=== PATIENT | female | born 1950 | race Caucasian/White ===

== ENCOUNTER 2017-07-28 12:35 | Emergency (ER) | payer MEDICARE ==
[~2017-07-28] VITALS: Wt 68.0 kg
[~2017-07-28 12:35] MED LIST: ALBUTEROL0.09 MG/A2 INH; CARAFATE1 G1 PO; CIPRO500 MG PO; FE-TABS325 MG PO; FLAGYL500 MG PO; FLEXERIL10 MG PO; IMODIUM2 MG PO; IRON; LISINOPRIL10 MG PO; LOPRESSOR25 MG PO; MOTRIN800 MG PO; PREDNICOT20 MG PO; PROTONIX40 MG PO; Percocet 325 MG1 TAB PO; VIBRAMYCIN100 MG PO; VICO75300 PO; VICODIN 5/500 505 MG PO; VICODIN 500 MG-1 TAB PO; ZOVIRAX400 MG PO; Zofran4 MG PO
== END 2017-07-28 14:54 | disposition left against medical advice (07) ==
LOC: ED 12:35
DX: M25.562 Pain in left knee (principal); Z53.21 Procedure and treatment not carried out due to patient leaving prior to being seen by health care provider

== ENCOUNTER → 2017-12-13 | Outpatient (CLI) | payer MEDICARE | END | disposition home or self-care (01) | LOC: CT 12:43 | DX: S09.90XD Unspecified injury of head, subsequent encounter (principal); M47.896 Other spondylosis, lumbar region; M12.88 Other specific arthropathies, not elsewhere classified, other specified site; G44.311 Acute post-traumatic headache, intractable; R41.3 Other amnesia; S13.4XXA Sprain of ligaments of cervical spine, initial encounter; M45.5 Ankylosing spondylitis of thoracolumbar region; M47.892 Other spondylosis, cervical region; J32.3 Chronic sphenoidal sinusitis; J32.2 Chronic ethmoidal sinusitis; Z91.81 History of falling; X58.XXXD Exposure to other specified factors, subsequent encounter ==

== ENCOUNTER → 2017-12-20 | Outpatient (CLI) | payer MEDICARE | END | disposition home or self-care (01) | LOC: LAB 10:16 | PROVIDERS: Nurse Practitioner Primary Care | DX: I10 Essential (primary) hypertension (principal); D50.9 Iron deficiency anemia, unspecified ==

== ENCOUNTER → 2018-06-23 | Outpatient (CLI) | payer MEDICARE ==
[~2018-06-23] MED LIST changes: +HYDROCHLOROTH12.5 M3 PO; +LEXAPRO10 MG PO; +VITAMIN D5000 UNI1 PO
== END | disposition home or self-care (01) ==
LOC: CT 13:00
DX: S09.90XA Unspecified injury of head, initial encounter (principal); R42 Dizziness and giddiness; M54.2 Cervicalgia; X58.XXXA Exposure to other specified factors, initial encounter; Y93.89 Activity, other specified; Y92.89 Other specified places as the place of occurrence of the external cause; Y99.8 Other external cause status

== ENCOUNTER → 2018-08-15 | Outpatient (CLI) | payer MEDICARE ==
[2018-08-15 10:56] LABS: BASO % 0.7 % (0.0-1.0); EOS # 0.2 10*3/uL (0.0-0.4); HEMATOCRIT 39.6 % (37.0-47.0); HEMOGLOBIN 13.6 g/dl (12.0-16.0); LYMPH # 1.3 10*3/uL (1.3-4.4); LYMPH % 23.4 % (27.0-41.0); MEAN CELL VOLUME 90.6 fl (81.0-99.0); MEAN CORPUSCULAR HGB 31.1 pg (27.0-31.0); MEAN CORPUSCULAR HGB CONC 34.3 g/dl (33.0-37.0); MEAN PLATELET VOLUME 9.6 fl (9.6-12.3); MONO # 0.5 10*3/uL (0.1-1.0); NEUT # 3.4 10*3/uL (2.3-7.9); NEUT % 62.5 % (47.0-73.0); PLATELET COUNT AUTOMATED 236 10*3/uL (130-400); RED BLOOD COUNT 4.37 10*6/uL (4.10-5.10); RED CELL DISTRI WIDTH 13.2 % (0-14.5); WHITE BLOOD COUNT 5.4 10*3/uL (4.8-10.8)
== END | disposition home or self-care (01) ==
LOC: LAB 10:17 → MAMMO 11:00
PROVIDERS: Family Medicine
DX: Z12.31 Encounter for screening mammogram for malignant neoplasm of breast (principal); M54.5 Low back pain; K92.1 Melena; Z78.0 Asymptomatic menopausal state; Z90.710 Acquired absence of both cervix and uterus

== ENCOUNTER → 2018-08-25 | Day surgery (SDC) | payer MEDICARE ==
[~2018-08-25] VITALS: Ht 157.4 cm; Wt 68.0 kg
--- NOTE | ~2018-08-25 | PROC NOTE ---
[place], [place] PROCEDURE NOTE NAME: ADEBAYO TONEY [facility] #: [id number] UNIT #: [id number] ROOM: DOCTOR: CHINO MICHAEL MD BIRTHDATE: [birth year] DOS: 08/25/2018 PREOPERATIVE DIAGNOSIS: Lower GI bleed. POSTOPERATIVE DIAGNOSIS: Normal sigmoid colon. PROCEDURE: Flexible sigmoidoscopy. ENDOSCOPIST: Chino Michael MD BANK MANAGER: BONI. ANESTHESIA: MAC. INDICATIONS: This is a 67-year-old lady here for a workup for a lower GI bleed. Procedure and its complications were explained to the patient in detail preoperatively. Complications that were discussed included but were not limited to, bleeding, colon perforation, and missed lesion. She agreed to proceed. DESCRIPTION OF PROCEDURE: After identifying the patient, the patient was brought to the endoscopy suite and placed in the left lateral position. After IV sedation was administered, a time-out procedure was called. A digital rectal exam was performed, which was within normal limits. There was no blood on the examining finger. An adult colonoscope was now introduced into the anal canal and advanced sequentially into the rectum and sigmoid colon up to the region of 20 cm from the anal verge. Despite multiple attempts, the scope could not be negotiated any further from this point. Until this point, there were no obvious lesions that could explain the bleeding and the lower GI bleed could be found. There were minor internal hemorrhoids that were visualized on the way out upon retroflexion of the scope, but no other lesions that could be seen. There was no active bleeding from the region of the hemorrhoids. The scope was withdrawn and the patient was brought back to the recovery in stable fashion. She will be sent down to Radiology to get a barium enema for further workup. These findings were discussed with the patient's family in the recovery room. Chino Michael MD CM:PROCNOTE:PROCEDURE NOTE [id number] CHINO MICHAEL MD
[2018-08-25 06:44] VITALS: BP 142/58
[2018-08-25 07:58] VITALS: BP 89/48
[2018-08-25 08:14] VITALS: BP 92/50
[2018-08-25 08:27] VITALS: BP 110/59
== END | disposition home or self-care (01) ==
LOC: SDC 08-22 12:30
DX: K92.2 Gastrointestinal hemorrhage, unspecified (principal); D50.9 Iron deficiency anemia, unspecified; K64.8 Other hemorrhoids; I10 Essential (primary) hypertension; M19.90 Unspecified osteoarthritis, unspecified site; F32.9 Major depressive disorder, single episode, unspecified; G89.29 Other chronic pain; K21.9 Gastro-esophageal reflux disease without esophagitis; Z90.710 Acquired absence of both cervix and uterus; Z96.652 Presence of left artificial knee joint; Z98.84 Bariatric surgery status; Z98.890 Other specified postprocedural states; Z90.49 Acquired absence of other specified parts of digestive tract; Z79.899 Other long term (current) drug therapy

== ENCOUNTER 2019-04-13 07:07 | Inpatient (IN) | payer MEDICARE ==
[~2019-04-13] VITALS: Ht 152.4 cm; Wt 68.7 kg
[2019-04-13] VITALS (8 sets, daily range): BP systolic 117–155; BP diastolic 54–80
--- NOTE | ~2019-04-13 | EKG ---
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
--- NOTE | ~2019-04-13 | EKG ---
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 : 1950 Requested By: MOOK QUIÑONES Order Number: [id number] Reading MD: Mickey Grace MD Measurements Intervals [place] Rate: 53 P: 44 GA: 147 QRS: 4 QRSD: 82 T: 40 QT: 451 QTc: 424 Interpretive Statements Sinus rhythm Electronically Signed On 04-13-2019 15:53:39 PDT by Mickey Grace MD CM:EKGRPT:ELECTROCARDIOGRAM REPORT [id number] 1553 MOOK GRAHAM DRAFT REPORT MOOK QUIÑONES DO
--- NOTE | ~2019-04-13 | EKG ---
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
[2019-04-13 07:26] LABS: BASO % 0.5 % (0.0-1.0); EOS # 0.1 10*3/uL (0.0-0.4); EOS % 1.4 % (1.0-4.0); HEMATOCRIT 40.9 % (37.0-47.0); HEMOGLOBIN 13.6 g/dl (12.0-16.0); LYMPH # 1.2 10*3/uL (1.3-4.4); LYMPH % 18.5 % (27.0-41.0); MEAN CELL VOLUME 99.3 fl (81.0-99.0); MEAN CORPUSCULAR HGB CONC 33.3 g/dl (33.0-37.0); MEAN PLATELET VOLUME 9.8 fl (9.6-12.3); MONO # 0.6 10*3/uL (0.1-1.0); MONO % 8.8 % (3.0-9.0); NEUT # 4.6 10*3/uL (2.3-7.9); NEUT % 70.3 % (47.0-73.0); PLATELET COUNT AUTOMATED 234 10*3/uL (130-400); RED BLOOD COUNT 4.12 10*6/uL (4.10-5.10); WHITE BLOOD COUNT 6.5 10*3/uL (4.8-10.8)
[2019-04-13 07:39] LABS: ACT PARTIAL THROMBO TIME 25.9 SECONDS (20.0-32.1); INTERNATIONAL NORM RATIO 0.9 (2.0-3.5)
[2019-04-13 07:41] LABS: ALBUMIN 3.5 gm/dl (3.1-4.5); ALKALINE PHOSPHATASE 68 U/L (45-117); CHLORIDE 110 mmol/L (98-107); CREATININE 0.97 mg/dL (0.55-1.02); POTASSIUM 3.6 mmol/L (3.5-5.1); SGOT/AST 17 IU/L (3-35); SGPT/ALT 18 U/L (12-78); SODIUM 141 mmol/L (136-145); TOTAL PROTEIN 6.7 gm/dL (6.4-8.2)
[2019-04-13 07:46] LABS: LIPASE 162 U/L (73-393)
[2019-04-13 07:52] LABS: BUN 26 mg/dl (7-24); TROPONIN I < 0.015 ng/ml (<0.045)
--- NOTE | 2019-04-13 11:00 | NUR ---
THE PATIENT STATES SHE IS FEELING BETTER AT THIS TIME. JG ROSEN RN.
--- NOTE | 2019-04-13 11:20 | NUR ---
PT AMBULATORY TO THE BATHROOM GAIT STEADY DENIES GFEELING DIZZY OR NAUSEATED AT THIS TIME.JG ROSEN RN.
--- NOTE | 2019-04-13 12:38 | NUR ---
A 68, admitted to , under the services of YVES Gustafson DO with a diagnosis of CONCUSSION, UNSTEADY GAIT. Chief complaint is DIZZINESS. Patient arrived via ambulatory from ER. Monitor applied. Initial assessment completed. Vital signs taken and recorded. YVES GUSTAFSON DO notified of admission to the unit. Orders received. See assessment for past medical history, medications and allergies. Patient and/or family oriented to unit. [facility] visitation policy reviewed. Clothing/patient valuable form completed. JEB SANDERS
[2019-04-13] MEDS ORDERED: CYCLOBENZAPRINE5 M3 PO (13:07)
[2019-04-13] MEDS ORDERED: FEROSUL325 MG PO (13:09)
[2019-04-14] VITALS: BP 110/51
[2019-04-14 06:47] LABS: BASO % 0.5 % (0.0-1.0); EOS # 0.1 10*3/uL (0.0-0.4); HEMATOCRIT 38.5 % (37.0-47.0); HEMOGLOBIN 12.7 g/dl (12.0-16.0); LYMPH # 1.2 10*3/uL (1.3-4.4); LYMPH % 29.1 % (27.0-41.0); MEAN CELL VOLUME 99.5 fl (81.0-99.0); MEAN CORPUSCULAR HGB 32.8 pg (27.0-31.0); MEAN PLATELET VOLUME 9.9 fl (9.6-12.3); MONO # 0.4 10*3/uL (0.1-1.0); MONO % 9.1 % (3.0-9.0); NEUT # 2.3 10*3/uL (2.3-7.9); NEUT % 58.8 % (47.0-73.0); PLATELET COUNT AUTOMATED 222 10*3/uL (130-400); RED BLOOD COUNT 3.87 10*6/uL (4.10-5.10); RED CELL DISTRI WIDTH 11.9 % (0-14.5)
--- NOTE | 2019-04-14 07:03 | NUR ---
PHYSICAL THERAPY Nursing screen received. PT orders also received. Thank you. Gauri Morgan,PT
[2019-04-14 07:24] LABS: ALBUMIN 3.2 gm/dl (3.1-4.5); ALKALINE PHOSPHATASE 66 U/L (45-117); BUN 18 mg/dl (7-24); CHLORIDE 112 mmol/L (98-107); CHOLESTEROL 182 mg/dL (<200); CREATININE 0.68 mg/dL (0.55-1.02); FREE T4 1.11 ng/dl (0.76-1.46); HDL CHOLESTEROL 37 mg/dl (40-60); LDL CHOLESTEROL 114 mg/dL (9-159); PHOSPHOROUS 3.1 mg/dL (2.5-4.9); SGOT/AST 15 IU/L (3-35); SGPT/ALT 17 U/L (12-78); SODIUM 142 mmol/L (136-145); TOTAL PROTEIN 6.4 gm/dL (6.4-8.2); TRIGLYCERIDES 154 mg/dl (<150); VLDL CHOLESTEROL 31 mg/dL (6-40)
[2019-04-14 07:28] LABS: THYROID STIM HORMONE (HS) 0.539 uIU/ml (0.358-4.75)
[2019-04-14 07:32] LABS: ACT PARTIAL THROMBO TIME 25.5 SECONDS (20.0-32.1); INTERNATIONAL NORM RATIO 0.9 (2.0-3.5)
[2019-04-14 08:00] VITALS: BP 150/69
[2019-04-14 08:57] LABS: VITAMIN D, 25-HYDROXY 22.2 ng/mL (30-100)
--- NOTE | 2019-04-14 09:00 | NUR ---
Plumbing Inspector in to talk to patient. Patient states lives at home with alone. There are few steps in the home. Physician: amanda gresham [facility]acy: [facility] [place] [facility]: none Patient's level of ADLs: INDEPENDENT Patient has working utilities: all working DME: none Follow-up physician's appointment after d/c: will be made by hospitalist nurse director upon discharge Does patient want to access PORTAL?: no Discharge plan discussed with patient, patient states she lives at home alone, she is independent in adls and ambulation, drives, recently retired, patient states she will be going home when able, discussed with her VNA and she declines any home services at this time, stated she has a good friend that can help her if needed, case management will follow. CARL ISAAC
--- NOTE | 2019-04-14 09:37 | NUR ---
RESTING COMFORTABLY IN BED. HARSH COUGH NOTED. PULSE OX 99% ON ROOM AIR. LUNGS CLEAR BILATERALLY. 1+ EDEMA NOTED TO BILATERAL LOWER LEGS
[2019-04-14 12:00] VITALS: BP 160/84
--- NOTE | 2019-04-14 15:22 | NUR ---
PHYSICAL THERAPY Patient evaluated on 4, full evaluation to follow. Continue with PT as per plan of care with fall, 02 and acute debility precautions. Home, with home health RN and PT prn if progress permitts. PAtient is moderate complexity via chart review, tests and evaluation: [id number]. Thank you for this referral. Gauri Morgan,PT
[2019-04-14 16:00] VITALS: BP 136/78
[2019-04-14 20:00] VITALS: BP 162/88
[2019-04-15] VITALS: BP 155/60
--- NOTE | 2019-04-15 01:10 | NUR ---
0100: PT REFUSING DA AT THIS TIME.
[2019-04-15 08:00] VITALS: BP 173/71
--- NOTE | 2019-04-15 11:36 | NUR ---
Notified Dr. Dominguez that during ambulation in the hallway patient stated that "I just dont feel good, and I think I should stay another day."
[2019-04-15 12:00] VITALS: BP 163/68
--- NOTE | 2019-04-15 15:59 | NUR ---
16:00 PT INSTRUCTED ON USE OF FLUTTER VALVE. PT DEMONSTRATED PROPER TECHNIQUE. PT INSTRUCTED TO USE Q 1-2 HRS X 10. RESPS REGULAR AND UNLABORED. SLIGHTLY MOIST NPC.
[2019-04-15 16:00] VITALS: BP 150/79
[2019-04-15 20:00] VITALS: BP 139/58
[2019-04-16] VITALS: BP 146/59
[2019-04-16 03:49] VITALS: BP 134/62
[2019-04-16 08:00] VITALS: BP 151/80
--- NOTE | 2019-04-16 08:00 | NUR ---
Patient resting quietly with no c/o discomfort. Respirations easy and regular. Vital signs stable. No overt distress. FANTASMA HERRING R
[2019-04-16] MEDS ORDERED: MUCINEX ER600 MG PO (08:02)
[2019-04-16] MEDS ORDERED: LOPRESSOR25 MG PO (08:02)
[2019-04-16] MEDS ORDERED: AVPAK AZITHROM250 MG PO (08:02)
--- NOTE | 2019-04-16 09:00 | NUR ---
Discharge instructions reviewed with patient/family. Patient receptive and verbalizes understanding. Follow-up care arranged. Written instructions given to patient/family. FANTASMA HERRING
== END 2019-04-16 09:00 | disposition home or self-care (01) | DRG 203 ==
LOC: ED 07:07 → EDHOLD 10:45 → 4E 10:45
PROVIDERS: Emergency Medicine; Internal Medicine; ADMIT Internal Medicine
DX: J20.9 Acute bronchitis, unspecified (principal); R00.1 Bradycardia, unspecified; I10 Essential (primary) hypertension; F32.9 Major depressive disorder, single episode, unspecified; Z96.652 Presence of left artificial knee joint; M19.90 Unspecified osteoarthritis, unspecified site; E55.9 Vitamin D deficiency, unspecified; R26.81 Unsteadiness on feet; E53.8 Deficiency of other specified B group vitamins; E61.1 Iron deficiency; E66.3 Overweight; Z90.710 Acquired absence of both cervix and uterus; Z79.899 Other long term (current) drug therapy; S06.0X0D Concussion without loss of consciousness, subsequent encounter

== ENCOUNTER 2019-08-20 08:11 | Emergency (ER) | payer MEDICARE ==
[~2019-08-20] VITALS: Ht 162.5 cm; Wt 68.0 kg
[~2019-08-20 08:11] MED LIST changes: +AVPAK AZITHROM250 MG PO; +CYCLOBENZAPRINE5 M3 PO; +FEROSUL325 MG PO; +MUCINEX ER600 MG PO
== END 2019-08-20 10:30 | disposition home or self-care (01) ==
LOC: ED 08:11
DX: S93.401A Sprain of unspecified ligament of right ankle, initial encounter (principal); M19.90 Unspecified osteoarthritis, unspecified site; I10 Essential (primary) hypertension; Z79.899 Other long term (current) drug therapy; W10.8XXA Fall (on) (from) other stairs and steps, initial encounter; Y93.89 Activity, other specified; Y92.89 Other specified places as the place of occurrence of the external cause; Y99.8 Other external cause status

== ENCOUNTER 2020-06-02 17:45 | Emergency (ER) | payer MEDICARE ==
[~2020-06-02] VITALS: Wt 63.5 kg
[2020-06-02 18:49] LABS: BASO % 0.3 % (0.0-1.0); EOS % 0.6 % (1.0-4.0); LYMPH # 1.4 10*3/uL (1.3-4.4); LYMPH % 22.6 % (27.0-41.0); MEAN CELL VOLUME 94.1 fl (81.0-99.0); MEAN CORPUSCULAR HGB 30.4 pg (27.0-31.0); MEAN CORPUSCULAR HGB CONC 32.4 g/dl (33.0-37.0); MEAN PLATELET VOLUME 9.9 fl (9.6-12.3); MONO # 0.6 10*3/uL (0.1-1.0); MONO % 10.3 % (3.0-9.0); NEUT # 4.1 10*3/uL (2.3-7.9); PLATELET COUNT AUTOMATED 272 10*3/uL (130-400); RED BLOOD COUNT 4.04 10*6/uL (4.10-5.10); RED CELL DISTRI WIDTH 13.1 % (0-14.5); WHITE BLOOD COUNT 6.2 10*3/uL (4.8-10.8)
[2020-06-02 19:00] LABS: ACT PARTIAL THROMBO TIME 26.3 SECONDS (20.0-32.1)
[2020-06-02 19:06] LABS: ALBUMIN 3.5 gm/dl (3.1-4.5); ALKALINE PHOSPHATASE 82 U/L (45-117); BUN 12 mg/dl (7-24); CHLORIDE 109 mmol/L (98-107); CREATININE 0.73 mg/dL (0.55-1.02); POTASSIUM 3.6 mmol/L (3.5-5.1); SGOT/AST 17 IU/L (3-35); SGPT/ALT 22 U/L (12-78); SODIUM 142 mmol/L (136-145); TOTAL PROTEIN 7.4 gm/dL (6.4-8.2)
[2020-06-02 19:07] LABS: TROPONIN I < 0.015 ng/ml (<0.045)
[2020-06-02] MEDS ORDERED: SALINE NOSE SPR45 ML NAS (20:05)
[2020-06-02] MEDS ORDERED: AUGMENTIN 875-875 MG PO (20:05)
== END 2020-06-02 20:14 | disposition home or self-care (01) ==
LOC: ED 17:45
PROVIDERS: Nurse Practitioner Family
DX: J01.90 Acute sinusitis, unspecified (principal); R04.0 Epistaxis; I10 Essential (primary) hypertension; Z79.899 Other long term (current) drug therapy